=== PATIENT | male | born 1965 | race Caucasian/White ===

== ENCOUNTER 2017-01-15 16:24 | Outpatient (CLI) | payer OTHER ==
--- NOTE | 2017-01-15 17:09 | DIAGNOSTIC IMAGING REPORT ---
PROCEDURE: CT ABDOMEN/PELVIS W/O CONTRAST INDICATION: Bilateral flank pain, left greater than right with hematuria x2 weeks. Initial encounter. TECHNIQUE: Noncontrast axial images were obtained of the entire abdomen and pelvis with sagittal and coronal reformations. COMPARISON: None. FINDINGS: ABDOMEN: Lung base are clear. Heart size is normal. Liver, gallbladder, pancreas, spleen, adrenal glands and kidneys are normal. No renal calculi or hydronephrosis. Minor atherosclerosis of the abdominal aorta. Single ascending colon diverticulum. Nonspecific bowel gas pattern. PELVIS: Normal appendix. Normal bladder and prostate. No pelvic mass, inflammatory changes or free fluid. Bones are unremarkable. IMPRESSION: 1. No evidence of urinary calculi or hydronephrosis. 2. Negative CT abdomen/pelvis 3. Results discussed with Lea MARCOS All CT scans at this facility use dose modulation, iterative reconstruction, and/or weight-based dosing when appropriate to reduce radiation dose to as low as reasonably achievable.
== END 2017-01-15 23:00 ==
LOC: CT SRH 16:24
DX: R31.9 Hematuria, unspecified (principal); R10.9 Unspecified abdominal pain